=== PATIENT | male | born 1990 | race Caucasian/White ===

== ENCOUNTER 2017-01-14 08:19 | Emergency (ER) | payer BC, OTHER ==
[2017-01-14] MEDS ORDERED: Ibuprofen 600 MG Tab PO ONE (08:34)
[2017-01-14] MEDS ORDERED: Iopamidol 755 Mg/ML 75 ML Bottle IV ONE (08:38)
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
[2017-01-14 10:06] VITALS: BP 124/80
== END 2017-01-14 10:00 | disposition home or self-care (01) ==
LOC: FB.ED 08:19
DX: R91.8 Other nonspecific abnormal finding of lung field (principal); S13.9XXA Sprain of joints and ligaments of unspecified parts of neck, initial encounter; S43.402A Unspecified sprain of left shoulder joint, initial encounter; V49.40XA Driver injured in collision with unspecified motor vehicles in traffic accident, initial encounter; R51 Headache; R42 Dizziness and giddiness; R06.02 Shortness of breath; M25.561 Pain in right knee; F17.210 Nicotine dependence, cigarettes, uncomplicated; Z79.899 Other long term (current) drug therapy
CPT/HCPCS: 36415; 70450; 71260; 72125; 80048; 80305; 81001; 85025; 85610; 99285; A9270; G0480; Q9967

== ENCOUNTER 2018-04-11 22:23 | Emergency (ER) | payer OTHER ==
[2018-04-11] MEDS ORDERED: Ibuprofen 600 MG Tab PO ONE (22:52)
--- NOTE | 2018-04-11 22:57 | EDM.PDOC ---
ED HPI GENERAL MEDICAL PROBLEM - General Chief Complaint: Chest Pain Stated Complaint: CHEST PAIN Time Seen by Provider: 04/11/18 22:53 Source of Information: Reports: Patient History Limitations: Reports: No Limitations - History of Present Illness INITIAL COMMENTS - FREE TEXT/NARRATIVE: Presents with intermittent sharp pleuritic left sided chest pain x 2 weeks. 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 Pain at times radiates to left ear. Began to have productive cough today. Denies h/o CAD. No FMHx CAD. Denies SOB. Duration: Week(s): (2) Location: Reports: Chest Quality: Reports: Sharp Severity: Moderate - Related Data Allergies Allergy/AdvReac Type Severity Reaction Status Date / Time No Known Allergies Allergy Verified 01/14/17 08:35 Home Meds: Home Meds Acetaminophen/HYDROcodone [[place] 325-5 MG] 1 tab PO Q4H PRN #16 tab 01/14/17 [Rx ] Albuterol [Ventolin HFA] 2 puff INH Q4HR PRN 01/14/17 [History] Beclomethasone Dipropionate [Qvar] 2 puff INH BID 01/14/17 [History] Ibuprofen [Ibu] 600 mg PO Q6H PRN #15 tablet 04/11/18 [Rx] Past Medical History Respiratory History: Reports: Asthma Social & Family History - Tobacco Use Smoking Status *Q: Never Smoker ED ROS GENERAL - Review of Systems Review Of Systems: ROS reveals no pertinent complaints other than HPI. ED EXAM, GENERAL - Physical Exam Exam: See Below Exam Limited By: No Limitations General Appearance: Alert, WD/WN, No Apparent Distress Ears: Normal External Exam Nose: Normal Inspection Throat/Mouth: No Airway Compromise Head: Atraumatic, Normocephalic Neck: Normal Inspection, Full Range of Motion Respiratory/Chest: No Respiratory Distress, Lungs Clear, Normal Breath Sounds, Other (Reproducible left chest wall tenderness) Cardiovascular: Regular Rate, Rhythm, No Murmur GI/Abdominal: No Distention (Male) Exam: Deferred Rectal (Males) Exam: Deferred Extremities: Normal Range of Motion Neurological: Alert, Normal Cognition, No Motor/Sensory Deficits Psychiatric: Normal Affect, Normal Mood Skin Exam: Warm, Dry, Intact EKG INTERPRETATION EKG Date: 04/11/18 Time: 23:16 Rhythm: NSR Rate (Beats/Min): 74 [place]: Normal P-Wave: Present QRS: Normal ST-T: Normal QT: Normal Course - Orders/Labs/Meds Orders: Active Orders 24 hr Category Date Time Status EKG Documentation Completion [RC] ASDIRECTED Care 04/11/18 22:52 Active CXR [Chest 2V] [CR] Stat Exams 04/11/18 22:51 Taken EKG 12 Lead [EK] Stat Ther 04/11/18 22:51 Ordered Meds: Medications Discontinued Medications Generic Name Dose Route Start Last Admin Trade Name Freq PRN Reason Stop Dose Admin Ibuprofen 600 mg 04/11/18 22:52 04/11/18 23:08 Motrin PO 04/11/18 22:53 600 mg ONETIME ONE Administration - Radiology Interpretation Free Text/Narrative:: CXR: NAD - Re-Assessments/Exams Free Text/Narrative Re-Assessment/Exam: 04/11/18 23:37 Slight improvement after Ibuprofen Departure - Departure Time of Disposition: 23:37 Disposition: Home, Self-Care 01 Condition: Good Clinical Impression: Costochondritis, acute Prescriptions: Ibuprofen [Ibu] 600 mg PO Q6H PRN #15 tablet PRN Reason: Pain Instructions: Costochondritis, [id number] Referrals: PCP,None [Primary Care Provider] - Forms: ED Department Discharge, ED Return to Work/School Form Additional Instructions: Rest, apply heating pad, light duty x 1 week. Follow up with your primary physician in 3-4 days. Return to the ER as needed. - My Orders Last 24 Hours: My Active Orders 04/11/18 22:51 CXR [Chest 2V] [CR] Stat EKG 12 Lead [EK] Stat 04/11/18 22:52 EKG Documentation Completion [RC] ASDIRECTED - Assessment/Plan Last 24 Hours: My Active Orders 04/11/18 22:51 CXR [Chest 2V] [CR] Stat EKG 12 Lead [EK] Stat 04/11/18 22:52 EKG Documentation Completion [RC] ASDIRECTED
[2018-04-12 00:15] VITALS: BP 113/73
--- NOTE | 2018-04-16 08:32 | CR ---
INDICATION: Chest pain. CHEST: PA and lateral views of the chest were obtained 04/11/2018 - no comparisons. The heart, mediastinum, and bony thorax were unremarkable. An active infiltrate or effusion was not identified. IMPRESSION: No active disease. MTDD
== END 2018-04-11 23:55 | disposition home or self-care (01) ==
LOC: FB.ED 22:23
DX: M94.0 Chondrocostal junction syndrome [Tietze] (principal); J45.909 Unspecified asthma, uncomplicated; Z79.899 Other long term (current) drug therapy
CPT/HCPCS: 71046; 93005; 99285; A9270-GY

== ENCOUNTER 2018-12-20 18:32 | Emergency (ER) | payer MEDICAID, OTHER ==
[2018-12-20] MEDS ORDERED: Ketorolac 30 MG/ML SDV IVPUSH ONE (18:43)
[2018-12-20] MEDS ORDERED: Sodium Chloride 0.9% 1,000 ML IV ONE (18:43)
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
[2018-12-20 20:51] VITALS: BP 104/69
== END 2018-12-20 20:47 | disposition home or self-care (01) ==
LOC: FB.ED 18:32
DX: K52.9 Noninfective gastroenteritis and colitis, unspecified (principal); E86.0 Dehydration; Z88.0 Allergy status to penicillin
CPT/HCPCS: 36415; 80048; 80076; 81001; 82150; 83605; 85025; 85610; 96361; 96374; 99284; J1885; J7030

== ENCOUNTER 2024-03-25 21:00 | Emergency (ER) | payer BC ==
[2024-03-25] MEDS ORDERED: EPINEPHrine 1:10,000 1 MG/10 ML Syringe IV ONE (21:01)
[2024-03-25 22:23] VITALS: BP 83/25; PULSE 0
== END 2024-03-26 00:50 | disposition expired ==
LOC: FB.ED 21:00
DX: T71.162A Asphyxiation due to hanging, intentional self-harm, initial encounter (principal); J45.909 Unspecified asthma, uncomplicated; Z88.0 Allergy status to penicillin; X83.8XXA Intentional self-harm by other specified means, initial encounter
CPT/HCPCS: 31500; 92950; 99152; 99285; G0390; J0171; 99291